=== PATIENT | female | born 1980 | race Caucasian/White ===

== ENCOUNTER 2021-05-03 22:06 | Inpatient (IN) | payer OTHER ==
[~2021-05-03] VITALS: Ht 170.2 cm; Wt 70.3 kg
--- NOTE | 2021-05-03 22:30 | NUR ---
PRESENTED TO THE ER FOR C/O ABD PAIN, NO N/V/D, NO FEVER OR CHILLS. PT WAS PLACED IN BED 10 ER, ON A MONITOR. VSS.
[2021-05-03 23:30] LABS: BASOPHILS # (AUTO) 0.1 K/uL (0.0-0.2); BASOPHILS % (AUTO) 0.7 % (0.0-2.0); EOSINOPHILS % (AUTO) 2.8 % (0.0-6.0); HEMATOCRIT 39 % (33-45); HEMOGLOBIN 13.4 g/dL (11.5-14.8); LYMPHOCYTES # (AUTO) 2.6 K/uL (0.8-4.8); LYMPHOCYTES % (AUTO) 13.2 % (20.0-44.0); MEAN CORPUSCULAR HGB CONC 34 g/dl (31.0-36.0); MEAN CORPUSCULAR VOLUME 114 fL (82-100); MONOCYTES # (AUTO) 1.5 K/uL (0.1-1.30); MONOCYTES % (AUTO) 7.8 % (2.0-12.0); NEUTROPHILS % (AUTO) 75.5 % (43.0-81.0); PLATELET COUNT (AUTO) 236 K/uL (150-450); RED BLOOD CELL COUNT(AUTO) 3.46 MIL/uL (4.0-5.2); WHITE BLOOD COUNT (AUTO) 19.8 K/uL (4.3-11.0)
[2021-05-03 23:31] LABS: BILIRUBIN,URINE NEGATIVE (NEGATIVE); COLOR,URINE YELLOW (YELLOW); LEUKOCYTE ESTERASE ,URINE LARGE (NEGATIVE); NITRITE, URINE NEGATIVE (NEGATIVE); PH,URINE 6.5 (5.0-8.0); PROTEIN,URINE NEGATIVE (NEGATIVE); UGLUCOSE NEGATIVE (NEGATIVE); UROBILINOGEN,URINE 0.2 EU/dL (0.2)
[2021-05-03 23:37] LABS: BACTERIA,URINE Few /HPF (None Seen); RBC,URINE 0-2 /HPF (0-2); SQUAMOUS EPITHELIAL CELL,UR Few /HPF (None Seen)
[2021-05-03 23:38] LABS: MUCUS,URINE Few /LPF (None Seen)
[2021-05-03 23:41] LABS: CALCIUM, SERUM 8.5 mg/dL (8.5-10.1); CREATININE 0.6 mg/dL (0.6-1.3); POTASSIUM 3.9 mmol/L (3.5-5.1)
[2021-05-03 23:47] LABS: ALBUMIN 2.7 g/dL (3.4-5.0); BILIRUBIN,DIRECT 0.8 mg/dL (0.0-0.2)
[2021-05-03 23:54] LABS: NEUTROPHILS % (MANUAL) 75 (42-76)
[2021-05-03 23:55] LABS: BASOPHILS % (MANUAL) 0 % (0.0-2.0); EOSINOPHILS % (MANUAL) 4 % (0-4); LYMPHOCYTES % (MANUAL) 8 % (16-48); MONOCYTES % (MANUAL) 13 % (0-11.0)
[2021-05-04] MEDS ORDERED: ONDANSETRON HCL/PF - ER 4 MG/2 ML VIAL IV ONE
[2021-05-04] MEDS ORDERED: MORPHINE SULFATE INJ 2 MG/ML DISP.SYRIN IV ONE
[2021-05-04] MEDS ORDERED: ONDANSETRON HCL/PF 4 MG/2 ML VIAL ONE (00:16)
[2021-05-04] MEDS ORDERED: MORPHINE SULFATE INJ 4 MG/ML DISP.SYRIN ONE (00:16)
[2021-05-04] MEDS ORDERED: PIPERACILLIN /TAZOBACTAM 3.375 G VIAL IV ONE (00:54)
[2021-05-04] MEDS ORDERED: PIPERACILLIN /TAZOBACTAM 3.375 G in IV D5W 50 ML IV ONE (01:00)
[2021-05-04] MEDS ORDERED: MAGNESIUM HYDROXIDE 30 ML UDC PO PRN (02:30)
[2021-05-04] MEDS ORDERED: MORPHINE SULFATE INJ 2 MG/ML DISP.SYRIN IV PRN (02:30)
[2021-05-04] MEDS ORDERED: ONDANSETRON HCL/PF 4 MG/2 ML VIAL IVP PRN (02:30)
[2021-05-04] MEDS ORDERED: ACETAMINOPHEN 325 MG TABLET PO PRN (02:30)
[2021-05-04] MEDS ORDERED: ZOLPIDEM TARTRATE 5 MG TABLET PO PRN (02:30)
--- NOTE | 2021-05-04 02:35 | NUR ---
WAS SEEN BY HAZEL MILIAN DNP, HOSPITALIST
[2021-05-04] MEDS: IV NS 0.9% 1,000 ML IV PRN ×2 (02:40→08:18)
--- NOTE | 2021-05-04 02:43 | NUR ---
RESTING IN BED COMFORTABLY, BREATHING EVEN, NAD NOTED . VSS. ON ONGOING IVF THERAPY WITH STABLE VS. WILL CONT TO MONITOR
[2021-05-04 04:39] LABS: BASOPHILS # (AUTO) 0.1 K/uL (0.0-0.2); BASOPHILS % (AUTO) 0.4 % (0.0-2.0); EOSINOPHILS % (AUTO) 3.5 % (0.0-6.0); HEMATOCRIT 40 % (33-45); HEMOGLOBIN 13.6 g/dL (11.5-14.8); LYMPHOCYTES # (AUTO) 2.5 K/uL (0.8-4.8); LYMPHOCYTES % (AUTO) 12.9 % (20.0-44.0); MEAN CORPUSCULAR HGB CONC 34 g/dl (31.0-36.0); MEAN CORPUSCULAR VOLUME 115 fL (82-100); MONOCYTES # (AUTO) 1.6 K/uL (0.1-1.30); MONOCYTES % (AUTO) 8.1 % (2.0-12.0); NEUTROPHILS # (AUTO) 14.4 K/uL (1.8-8.9); NEUTROPHILS % (AUTO) 75.1 % (43.0-81.0); PLATELET COUNT (AUTO) 243 K/uL (150-450); WHITE BLOOD COUNT (AUTO) 19.2 K/uL (4.3-11.0)
[2021-05-04 04:50] LABS: CALCIUM, SERUM 8.5 mg/dL (8.5-10.1); CREATININE 0.6 mg/dL (0.6-1.3); MAGNESIUM 1.7 mg/dL (1.8-2.4); PHOSPHORUS 3.9 mg/dL (2.5-4.9); POTASSIUM 3.8 mmol/L (3.5-5.1)
--- NOTE | 2021-05-04 05:14 | NUR ---
DOSING IN BED , BREATHING EVENLY W/ NO ACUTE DISTRESS. W/ MILD ABD PAIN. ON ONGOING IVF W/ NO S/S OF INFILTRATION. NEEDS ATTENDED. CALL LIGHT WITHIN REACH. WILL CONT TO MONITOR
[2021-05-04 05:29] LABS: BASOPHILS % (MANUAL) 0 % (0.0-2.0); EOSINOPHILS % (MANUAL) 4 % (0-4); LYMPHOCYTES % (MANUAL) 8 % (16-48); MONOCYTES % (MANUAL) 5 % (0-11.0); NEUTROPHILS % (MANUAL) 83 (42-76)
--- NOTE | 2021-05-04 06:40 | NUR ---
Patient is resting comfortably in bed with eyes closed. Easily aroused. WILL CONT TO MONITOR
[2021-05-04] MEDS: PIPERACILLIN /TAZOBACTAM 3.375 G in IV D5W 100 ML IV SCH ×2 (08:18→17:40)
--- NOTE | 2021-05-04 08:21 | NUR ---
40 years old female alert, oriented x4 ambulatory with steady presents to er with abd pain, condition stable no nausea vomiting vital stable awaiting for admit bed. patient informs.
--- NOTE | 2021-05-04 08:32 | NUR ---
patient stable for transfer to unit room 116-1, report given to nurse Bridgerat all questions answered.
--- NOTE | 2021-05-04 09:20 | NUR ---
Patient was taken to RADIOLOGY FOR [facility] SCAN AT 915 AM IN STABLE CONDITION
[2021-05-04] MEDS: Magnesium 1GM/D5W 100ML PREMIX 100 ML IV SCH ×2 (11:00→12:39)
--- NOTE | 2021-05-04 11:00 | NUR ---
Received order from MD Holbrook to order regular diet after 1430 pm for the patient.
[2021-05-04 12:00] VITALS: BP 92/56
[2021-05-04] MEDS: CHLORDIAZEPOXIDE HCL 25 MG CAPSULE PO SCH ×2 (13:01→17:40)
--- NOTE | 2021-05-04 19:47 | NUR ---
RN OPENING NOTE Received pt in bed, alert and oriented x4. Patient is breathing even and unlabored on room air. no s/s of resp. distress or SOB noted. Right forearm iv infiltrated and erythema noted, discontinued. (L) AC 20G patent and intact running NS @ 75ml/hr. Patient in stable condition. Safety measures in place: Call light with in reach, bed locked in lowest position, side rails up x2. pt. is ambulatory with steady gait. No acute distress noted at this time.
--- NOTE | 2021-05-04 19:50 | NUR ---
RN CLOSING NOTES Patient is alert and oriented. Patient is breathing even and unlabored. Right forearm iv noted with redness. Iv site discontinued and new iv inserted 20 gauge to left ac. Patient in good stable condition. Call light with in reach. Endorsed to next shift for portillo.
[2021-05-04 20:00] VITALS: BP 117/73
[2021-05-05] MEDS: PIPERACILLIN /TAZOBACTAM 3.375 G in IV D5W 100 ML IV SCH ×3 (00:14→17:00)
[2021-05-05 04:00] VITALS: BP 117/81
--- NOTE | 2021-05-05 06:28 | NUR ---
RN CLOSING NOTE Pt in bed, alert and oriented x4. Patient is breathing even and unlabored on room air. no s/s of resp. distress or SOB noted. (L) AC 20G patent and intact running NS @ 75ml/hr. Patient in stable condition. All orders and needs met throughout shift.Safety measures in place: Call light with in reach, bed locked in lowest position, side rails up x2. pt. is ambulatory with steady gait. No acute distress noted at this time. Will endorse continuity of care to morning shift RN
[2021-05-05 06:48] LABS: BASOPHILS # (AUTO) 0.1 K/uL (0.0-0.2); BASOPHILS % (AUTO) 0.5 % (0.0-2.0); EOSINOPHILS % (AUTO) 4.7 % (0.0-6.0); HEMATOCRIT 37 % (33-45); HEMOGLOBIN 12.5 g/dL (11.5-14.8); LYMPHOCYTES # (AUTO) 2.3 K/uL (0.8-4.8); LYMPHOCYTES % (AUTO) 15.5 % (20.0-44.0); MEAN CORPUSCULAR HGB CONC 33 g/dl (31.0-36.0); MEAN CORPUSCULAR VOLUME 115 fL (82-100); MONOCYTES # (AUTO) 1.3 K/uL (0.1-1.30); MONOCYTES % (AUTO) 9.1 % (2.0-12.0); NEUTROPHILS # (AUTO) 10.4 K/uL (1.8-8.9); NEUTROPHILS % (AUTO) 70.2 % (43.0-81.0); PLATELET COUNT (AUTO) 205 K/uL (150-450); RED BLOOD CELL COUNT(AUTO) 3.25 MIL/uL (4.0-5.2); WHITE BLOOD COUNT (AUTO) 14.8 K/uL (4.3-11.0)
[2021-05-05 06:52] LABS: CALCIUM, SERUM 8.3 mg/dL (8.5-10.1); CREATININE 0.5 mg/dL (0.6-1.3); PHOSPHORUS 3.4 mg/dL (2.5-4.9); POTASSIUM 3.7 mmol/L (3.5-5.1)
--- NOTE | 2021-05-05 07:30 | NUR ---
PT RECEIVED RESTING COMFORTABLY IN BED WITH EYES CLOSED. NO S/S OR C/O PAIN OR DISTRESS NOTED. SIDE RAILS UP X2, CALL LIGHT LEFT WITHIN REACH. WILL CONTINUE PLAN OF CARE.
[2021-05-05] MEDS: CHLORDIAZEPOXIDE HCL 25 MG CAPSULE PO SCH ×3 (08:25→17:43)
[2021-05-05] MEDS: PANTOPRAZOLE 40 MG VIAL IV SCH ×2 (11:26→17:43)
[2021-05-05 12:00] VITALS: BP 117/81
--- NOTE | 2021-05-05 19:28 | NUR ---
CHANGE OF SHIFT REPORT PT RESTING COMFORTABLY IN BED. NO S/S OR C.O PAIN OR DISTRESS NOTED. SIDE RAILS UP X2, CALL LIGHT LEFT WITHIN REACH. PT KEPT CLEAN, DRY, AND COMFORTABLE. NO SIGNIFICANT CHANGES SINCE PREVIOUS SHIFT. REPORT GIVEN TO LIBBY DURANT.
--- NOTE | 2021-05-05 19:45 | NUR ---
RN NOTE PT RECEIVED IN BED. CURRENTLY ON ROOM AIR SHOWING NO S/S OF RESP DISTRESS/SOB. PT IS A&OX4. PT IS ABLE TO AMBULATE INDEPENDENTLY. CHEST RASH NOTED, PT STATES PSORIASIS. CURRENTLY ON REGULAR DIET. IV LINE ON LEFT HAND GAUGE 20 FLUSHED, PATENT, AND INTACT INFUSING NS AT 75ML/HR. ALL SAFETY MEASURES IMPLEMENTED. CALL LIGHT WITHIN REACH. BED ALARM ON. BED LOCKED AND IN LOWEST POSITION. WILL CONTINUE TO MONITOR AND ASSESS THROUGHOUT THE SHIFT.
[2021-05-05 20:00] VITALS: BP 115/78
[2021-05-05 20:12] VITALS: BP 115/78
[2021-05-05] MEDS: IV NS 0.9% 1,000 ML IV PRN (20:14)
--- NOTE | 2021-05-05 21:50 | NUR ---
RN NOTE PT IV LINE WAS INFILTRATED. REMOVED LEFT AC LINE AND RE-INSERTED IV LINE IN LEFT HAND GAUGE 20.
[2021-05-05 23:55] VITALS: BP 118/75
[2021-05-06] MEDS: PIPERACILLIN /TAZOBACTAM 3.375 G in IV D5W 100 ML IV SCH ×2 (00:45→08:21)
[2021-05-06 04:00] VITALS: BP 110/71
[2021-05-06 04:25] VITALS: BP 110/71
--- NOTE | 2021-05-06 06:37 | NUR ---
RN NOTE NO CHANGES IN PT CONDITION DURING SHIFT. PT IS ON ROOM AIR WITH NO S/S OF RESP DISTRESS/SOB. A&OX4. PT IS AMBULATORY AND HAS IV LINE ON LEFT HAND GAUGE 20 INFUSING NS@ 75ML/HR. IV LINE FLUSHED, PATENT, AND INTACT W/ NO SIGNS OF INFILTRATION. PT KEPT CLEAN AND COMFORTABLE. ALL SAFETY MEASURES IMPLEMENTED. BED ALARM ON. BED LOCKED AND IN LOWEST POSITION. CALL LIGHT WITHIN REACH. WILL ENDORSE TO MORNING SHIFT RN FOR CLARIBEL.
--- NOTE | 2021-05-06 07:49 | NUR ---
RN OPENING NOTES; RECEIVED PT IN SITTING PO. A/OX4. PT 02 SAT 100% IN ROOM AIR. NO C/O SOB OR DISTRESS. PT IS AMBULATORY AND VOIDS BY USING RESTROOM INDEPENDENTLY. IV LINE INTACT AND PATENT ON LEFT HAND GAUGE 20 INFUSING NS@ 75ML/HR. W/ NO SIGNS OF INFILTRATION. PALL SAFETY MEASURES IMPLEMENTED. BED ALARM ON. BED LOCKED AND IN LOWEST POSITION. CALL LIGHT WITHIN REACH. WILL CONTINUE TO MONITOR.
[2021-05-06] MEDS: CHLORDIAZEPOXIDE HCL 25 MG CAPSULE PO SCH (08:20)
[2021-05-06] MEDS: PANTOPRAZOLE 40 MG VIAL IV SCH (08:21)
[2021-05-06] MEDS ORDERED: AMOX-430 PO (10:15)
[2021-05-06 11:02] LABS: BASOPHILS # (AUTO) 0.1 K/uL (0.0-0.2); BASOPHILS % (AUTO) 0.6 % (0.0-2.0); EOSINOPHILS % (AUTO) 4.9 % (0.0-6.0); HEMATOCRIT 39 % (33-45); HEMOGLOBIN 13.2 g/dL (11.5-14.8); LYMPHOCYTES # (AUTO) 2.6 K/uL (0.8-4.8); LYMPHOCYTES % (AUTO) 19.5 % (20.0-44.0); MEAN CORPUSCULAR HGB CONC 34 g/dl (31.0-36.0); MEAN CORPUSCULAR VOLUME 115 fL (82-100); MONOCYTES # (AUTO) 1.2 K/uL (0.1-1.30); MONOCYTES % (AUTO) 9.3 % (2.0-12.0); NEUTROPHILS # (AUTO) 8.6 K/uL (1.8-8.9); NEUTROPHILS % (AUTO) 65.7 % (43.0-81.0); PLATELET COUNT (AUTO) 220 K/uL (150-450); WHITE BLOOD COUNT (AUTO) 13.2 K/uL (4.3-11.0)
[2021-05-06] MEDS ORDERED: GADOTERATE MEGLUMINE 10 MMOL/20 ML VIAL IV ONE (11:22)
[2021-05-06 11:24] LABS: ALBUMIN 2.4 g/dL (3.4-5.0); BILIRUBIN,TOTAL 1.1 mg/dL (0.2-1.0); CALCIUM, SERUM 8.2 mg/dL (8.5-10.1); CREATININE 0.7 mg/dL (0.6-1.3); POTASSIUM 3.9 mmol/L (3.5-5.1); TOTAL PROTEIN, SERUM 7.4 g/dL (6.4-8.2)
--- NOTE | 2021-05-06 11:52 | NUR ---
PT A/OX4, AMBULATORY, NO C/O PAIN OR DISTRESS. PT DISCHARGED TO HOME IN STABLE CONDITION. PT WAS ESCORTED BY NICO LEE TO THE LOBBY WHERE SHE WAS PICKED UP BY A FRIEND. PT GIVEN DISCHARGE TEACHINGS AND STATES UNDERSTANDING.
== END 2021-05-06 11:23 | disposition home or self-care (01) | DRG 282 ==
LOC: ER 22:10 → TRANSITION 05-04 02:27 → MEDSG1 05-04 08:14
PROVIDERS: ADMIT Internal Medicine; ATTEND Internal Medicine
DX: K85.90 Acute pancreatitis without necrosis or infection, unspecified (principal); R18.8 Other ascites; K76.0 Fatty (change of) liver, not elsewhere classified; F10.10 Alcohol abuse, uncomplicated; K43.9 Ventral hernia without obstruction or gangrene; K64.9 Unspecified hemorrhoids; Z20.822 Contact with and (suspected) exposure to COVID-19; K27.9 Peptic ulcer, site unspecified, unspecified as acute or chronic, without hemorrhage or perforation; K52.9 Noninfective gastroenteritis and colitis, unspecified; R74.01 Elevation of levels of liver transaminase levels; Z72.0 Tobacco use; Y90.9 Presence of alcohol in blood, level not specified; K82.8 Other specified diseases of gallbladder; K86.2 Cyst of pancreas
CPT/HCPCS: 36415; 74183-TC; 76705-TC; 78226; 80048-TC; 80053-TC; 80061-TC; 80076-TC; 81001; 83605-TC; 83690-TC; 83735-TC; 84100-TC; 84703-TC; 85025-TC; 86140-TC; 87081-TC; 87086-TC; A9537; A9575; C9113; C9803; G0378; J2270; J2405; J2543; J3475; J7030; J7050; J7060

== ENCOUNTER 2021-05-27 21:11 | Emergency (ER) | payer OTHER ==
[~2021-05-27] VITALS: Ht 170.2 cm; Wt 70.3 kg
[~2021-05-27 21:11] MED LIST: AMOX-430 PO
[2021-05-27 22:09] LABS: BASOPHILS # (AUTO) 0.1 K/uL (0.0-0.2); BASOPHILS % (AUTO) 0.8 % (0.0-2.0); EOSINOPHILS % (AUTO) 1.3 % (0.0-6.0); HEMATOCRIT 36 % (33-45); HEMOGLOBIN 12.3 g/dL (11.5-14.8); LYMPHOCYTES # (AUTO) 2.5 K/uL (0.8-4.8); LYMPHOCYTES % (AUTO) 13.1 % (20.0-44.0); MEAN CORPUSCULAR HGB CONC 34 g/dl (31.0-36.0); MEAN CORPUSCULAR VOLUME 112 fL (82-100); MONOCYTES # (AUTO) 1.5 K/uL (0.1-1.30); NEUTROPHILS # (AUTO) 14.5 K/uL (1.8-8.9); NEUTROPHILS % (AUTO) 76.8 % (43.0-81.0); PLATELET COUNT (AUTO) 179 K/uL (150-450); RED BLOOD CELL COUNT(AUTO) 3.19 MIL/uL (4.0-5.2); WHITE BLOOD COUNT (AUTO) 18.9 K/uL (4.3-11.0)
[2021-05-27 22:25] LABS: CALCIUM, SERUM 8.4 mg/dL (8.5-10.1); CREATININE 0.7 mg/dL (0.6-1.3); POTASSIUM 3.1 mmol/L (3.5-5.1)
[2021-05-27] MEDS ORDERED: IV NS 0.9% 1,000 ML BAG IV ONE (22:30)
[2021-05-27] MEDS ORDERED: ONDANSETRON HCL/PF 4 MG/2 ML VIAL IVP ONE (22:30)
[2021-05-27] MEDS ORDERED: POTASSIUM CHLORIDE 20 MEQ TAB.PRT.SR PO ONE ×2 (22:30→22:50)
[2021-05-27] MEDS ORDERED: MORPHINE SULFATE INJ 2 MG/ML DISP.SYRIN IV ONE (22:30)
[2021-05-27 22:31] LABS: ALBUMIN 2.5 g/dL (3.4-5.0); BILIRUBIN,DIRECT 1.5 mg/dL (0.0-0.2); BILIRUBIN,TOTAL 1.9 mg/dL (0.2-1.0); TOTAL PROTEIN, SERUM 8.3 g/dL (6.4-8.2)
[2021-05-27] MEDS ORDERED: ONDANSETRON HCL/PF 4 MG/2 ML VIAL ONE (22:49)
[2021-05-27] MEDS ORDERED: MORPHINE SULFATE INJ 4 MG/ML DISP.SYRIN ONE (22:50)
[2021-05-27] MEDS ORDERED: POTASSIUM CHLORIDE 20 MEQ POWDER PACKET ONE (22:57)
--- NOTE | 2021-05-27 23:17 | NUR ---
PATIENT CAME TO ER BED 4 C/O ABDOMINAL PAIN FOR 1-2 x WEEK W/ NAUSEA AND VOMITING. ALSO C/O LAST 2x DAYS FEELING TINGLING AND NUMBNESS SENSATION THROUGHOUT HER BODY. PATIENT IS ALERT AND ORIENTED x4. AMBULATORY WITH A STEADY GAIT. BREATHING EVENLY AND UNLABORED ON ROOM AIR CONNECTED TO THE MONITOR.
--- NOTE | 2021-05-27 23:18 | NUR ---
URINE COLLECTED AND SENT TO THE LAB.
[2021-05-27 23:27] LABS: BILIRUBIN,URINE MODERATE (NEGATIVE); COLOR,URINE DARK YELLOW (YELLOW); LEUKOCYTE ESTERASE ,URINE Negative (NEGATIVE); NITRITE, URINE Positive (NEGATIVE); PROTEIN,URINE 30 mg/dl (NEGATIVE); UGLUCOSE Negative (NEGATIVE)
--- NOTE | 2021-05-27 23:29 | NUR ---
US at the bedside
[2021-05-27 23:57] LABS: BACTERIA,URINE Many /HPF (None Seen); SQUAMOUS EPITHELIAL CELL,UR Few /HPF (None Seen)
[2021-05-28 00:03] LABS: BAND % (MANUAL) 2 % (0.0-5.0); BASOPHILS % (MANUAL) 0 % (0.0-2.0); EOSINOPHILS % (MANUAL) 0 % (0-4); LYMPHOCYTES % (MANUAL) 6 % (16-48); MONOCYTES % (MANUAL) 8 % (0-11.0); NEUTROPHILS % (MANUAL) 84 (42-76)
[2021-05-28] MEDS ORDERED: CEPHALEXIN MONOHYDRATE 500 MG CAPSULE PO ONE ×2 (00:12→00:30)
[2021-05-28] MEDS ORDERED: ONDA4TAB5 PO (00:30)
[2021-05-28] MEDS ORDERED: CEPH500T PO (00:30)
[2021-05-28] MEDS ORDERED: IBUP-1955 PO (00:30)
[2021-05-28] MEDS ORDERED: IV NS 0.9% 1,000 ML BAG IV ONE (00:30)
[2021-05-28] MEDS ORDERED: CHLO25CA22 PO (00:30)
[2021-05-28 00:49] VITALS: BP 115/71
--- NOTE | 2021-05-28 00:49 | NUR ---
Patient discharged to home in stable condition. Written and verbal after care instructions given. Patient verbalizes understanding of instruction.
--- NOTE | 2021-05-28 00:49 | NUR ---
IV removed. Catheter intact and site benign. Pressure and 4x4 applied to site. No bleeding noted.
== END 2021-05-28 00:50 | disposition home or self-care (01) ==
LOC: ER 21:19
DX: N39.0 Urinary tract infection, site not specified (principal); R10.13 Epigastric pain; F10.20 Alcohol dependence, uncomplicated; F17.200 Nicotine dependence, unspecified, uncomplicated; Y90.9 Presence of alcohol in blood, level not specified; Z60.2 Problems related to living alone; Z79.899 Other long term (current) drug therapy
CPT/HCPCS: 36415; 76705; 80048; 80076; 81001; 83690; 83735; 84703; 85007; 85025; 87086; 96361 ×2; 96374; 96375; 99284; J2270; J2405; J7030 ×2

== ENCOUNTER 2022-02-03 10:01 | Emergency (ER) | payer OTHER ==
[~2022-02-03] VITALS: Ht 170.2 cm; Wt 62.6 kg
[~2022-02-03 10:01] MED LIST changes: +CEPH500T PO; +CHLO25CA22 PO; +IBUP-1955 PO; +ONDA4TAB5 PO
[2022-02-03 10:07] VITALS: BP 113/65
--- NOTE | 2022-02-03 10:10 | NUR ---
C/O r ankle pain, swollen, s/p rolled out while walking 10/10 ps. Came in by wheelchair aaox4, in pain.
--- NOTE | 2022-02-03 10:10 | NUR ---
AT BED SIDE
--- NOTE | 2022-02-03 10:15 | NUR ---
X-RAY TECH. AT BED SIDE
[2022-02-03] MEDS ORDERED: IBUPROFEN 600 MG TABLET PO ONE (11:00)
[2022-02-03] MEDS ORDERED: IBUPROFEN 600 MG TABLET ONE (11:26)
[2022-02-03] MEDS ORDERED: IBUP-1953 PO (11:55)
--- NOTE | 2022-02-03 12:10 | NUR ---
Patient discharged to home in stable condition. Written and verbal after care instructions given. Patient verbalizes understanding of instruction.
== END 2022-02-03 12:10 | disposition home or self-care (01) ==
LOC: ER 10:06
DX: S82.64XA Nondisplaced fracture of lateral malleolus of right fibula, initial encounter for closed fracture (principal); S92.515A Nondisplaced fracture of proximal phalanx of left lesser toe(s), initial encounter for closed fracture; I10 Essential (primary) hypertension; F17.200 Nicotine dependence, unspecified, uncomplicated; Z60.2 Problems related to living alone; Z79.899 Other long term (current) drug therapy; X50.1XXA Overexertion from prolonged static or awkward postures, initial encounter; Y93.89 Activity, other specified; Y92.89 Other specified places as the place of occurrence of the external cause; Y99.8 Other external cause status
CPT/HCPCS: 73610-TC; 73660-TC

== ENCOUNTER 2022-05-25 11:11 | Inpatient (IN) | payer OTHER ==
[~2022-05-25] VITALS: Ht 170.2 cm; Wt 71.2 kg
[~2022-05-25 11:11] MED LIST changes: +IBUP-1953 PO
--- NOTE | 2022-05-25 11:44 | NUR ---
DR FORMAN AT BEDSIDE FOR EVAL
--- NOTE | 2022-05-25 11:50 | NUR ---
ASSISTED DR FORMAN DURING I&D OF PATIENT L BUTTOCK AREA ABSCESS
[2022-05-25] MEDS ORDERED: LIDOCAINE 1%-EPI 1:100,000 20 ML VIAL ONE (11:59)
--- NOTE | 2022-05-25 12:20 | NUR ---
WOUND CULTURE COLLECTED AND SENT TO LAB
[2022-05-25] MEDS ORDERED: FURO20TA4 PO (12:28)
[2022-05-25] MEDS ORDERED: GABA800T11 PO (12:28)
[2022-05-25] MEDS ORDERED: SPIR25TA6 PO (12:28)
[2022-05-25] MEDS ORDERED: PROP10TA68 PO (12:28)
[2022-05-25] MEDS ORDERED: DULO60CA64 PO (12:28)
[2022-05-25] MEDS ORDERED: PANT40TA49 PO (12:28)
--- NOTE | 2022-05-25 12:29 | NUR ---
COVID AND MRSA SWAB COLLECTED AND SENT TO LAB
[2022-05-25] MEDS ORDERED: CT SWABBABLE VALVE TRANS SET 1 EA INFUS.SET MC ONE (12:39)
[2022-05-25] MEDS ORDERED: IOHEXOL-300 100 ML VIAL IV ONE (12:39)
[2022-05-25] MEDS ORDERED: IV NS 0.9% 250 ML IV ONE (12:39)
[2022-05-25 12:48] LABS: BASOPHILS # (AUTO) 0.1 K/uL (0.0-0.2); BASOPHILS % (AUTO) 0.3 % (0.0-2.0); EOSINOPHILS % (AUTO) 0.7 % (0.0-6.0); HEMATOCRIT 34 % (33-45); HEMOGLOBIN 11.5 g/dL (11.5-14.8); LYMPHOCYTES # (AUTO) 3.1 K/uL (0.8-4.8); LYMPHOCYTES % (AUTO) 16.9 % (20.0-44.0); MEAN CORPUSCULAR HGB CONC 34 g/dl (31.0-36.0); MEAN CORPUSCULAR VOLUME 94 fL (82-100); MONOCYTES # (AUTO) 3.1 K/uL (0.1-1.30); MONOCYTES % (AUTO) 16.9 % (2.0-12.0); NEUTROPHILS # (AUTO) 12.1 K/uL (1.8-8.9); NEUTROPHILS % (AUTO) 65.2 % (43.0-81.0); PLATELET COUNT (AUTO) 168 K/uL (150-450); RED BLOOD CELL COUNT(AUTO) 3.65 MIL/uL (4.0-5.2); WHITE BLOOD COUNT (AUTO) 18.6 K/uL (4.3-11.0)
--- NOTE | 2022-05-25 12:49 | NUR ---
PT TAKEN TO [facility]IOLOGY [facility]IA [facility]
[2022-05-25 13:22] LABS: ALBUMIN 2.7 g/dL (3.4-5.0); CALCIUM, SERUM 8.6 mg/dL (8.5-10.1); CREATININE 0.8 mg/dL (0.6-1.3); TOTAL PROTEIN, SERUM 8.4 g/dL (6.4-8.2)
[2022-05-25 13:25] LABS: POTASSIUM 2.5 mmol/L (3.5-5.1)
[2022-05-25 13:28] LABS: LYMPHOCYTES % (MANUAL) 16 % (16-48); MONOCYTES % (MANUAL) 7 % (0-11.0); NEUTROPHILS % (MANUAL) 77 (42-76)
[2022-05-25] MEDS ORDERED: IV NS 0.9% 1,000 ML BAG IV ONE (13:30)
[2022-05-25] MEDS ORDERED: POTASSIUM CL. PREMIX PERIPHER. 100 ML ONE (14:57)
[2022-05-25] MEDS ORDERED: POTASSIUM CHLORIDE 20 MEQ TAB.PRT.SR PO ONE ×2 (14:57→15:00)
[2022-05-25] MEDS: POTASSIUM CL. PREMIX PERIPHER. 50 ML IV SCH ×2 (15:06→15:57)
--- NOTE | 2022-05-25 17:08 | NUR ---
Patient will go to 321-1
--- NOTE | 2022-05-25 17:13 | NUR ---
REPORT GIVEN TO MACI DURANT FOR CLARIBEL
[2022-05-25] MEDS ORDERED: MORPHINE SULFATE INJ 2 MG/ML DISP.SYRIN ONE (17:59)
[2022-05-25] MEDS ORDERED: HYDROCODONE/APAP 5/325MG TABLET PO PRN ×2 (18:00→19:00)
[2022-05-25] MEDS ORDERED: ACETAMINOPHEN 325 MG TABLET PO PRN ×2 (18:00→19:00)
[2022-05-25] MEDS ORDERED: Z GUARD REMEDY 4 OZ OINT TP PRN ×2 (18:00→18:15)
[2022-05-25] MEDS ORDERED: ONDANSETRON HCL/PF 4 MG/2 ML VIAL IVP PRN ×2 (18:00→19:00)
[2022-05-25] MEDS ORDERED: MAG HYDROX/AL HYDROX/SIMETH 30 ML UDC PO PRN ×2 (18:00→19:00)
[2022-05-25] MEDS: MORPHINE SULFATE INJ 2 MG/ML DISP.SYRIN IV PRN (18:00)
[2022-05-25] MEDS ORDERED: PIPERACILLIN /TAZOBACTAM 3.375 G in IV D5W 50 ML IV SCH (18:00)
[2022-05-25] MEDS ORDERED: MAGNESIUM HYDROXIDE 30 ML UDC PO PRN ×2 (18:00→19:00)
[2022-05-25] MEDS ORDERED: ZOLPIDEM TARTRATE 5 MG TABLET PO PRN ×2 (18:00→22:00)
--- NOTE | 2022-05-25 18:58 | NUR ---
PT TRANSFERRED TO [facility]. WARM HANDOFF GIVEN TO RN ASSIGNED.
[2022-05-25] MEDS ORDERED: VANCOMYCIN 1.25 GM in IV D5W 250 ML IV ONE ×2 (19:00→19:15)
--- NOTE | 2022-05-25 19:00 | NUR ---
RN RECEIVING NOTE PATIENT BROUGHT UP FROM ER. PATIENT A/OX4. STABLE. PATIENT WAS ABLE TO AMBULATE TO HER BED. NO S/S OF DISTRESS, BREATHING WITHOUT DIFFICULTY ON ROOM AIR. RAC #20 SL INTACT AND PATENT. SAFETY MEASURES IN PLACE: BED AT LOWEST LEVEL AND LOCKED, RAILS UP X2, CALL TANNER GIVEN TO PATIENT AND INSTRUCTED ON ITS USE. PATIENT'S BELONGINGS ACCOUNTED FOR, LOGGED INTO SHEET, AND PLACED IN CHART. PATIENT WAS ORIENTED TO THE UNIT. WILL CONTINUE TO MONITOR PATIENT.
[2022-05-26] MEDS: PIPERACILLIN /TAZOBACTAM 3.375 G in IV D5W 50 ML IV SCH ×4 (00:28→17:55)
[2022-05-26 01:48] VITALS: BP 98/60
[2022-05-26] MEDS: VANCOMYCIN 1.25 GM in IV D5W 250 ML IV SCH ×2 (06:14→19:46)
--- NOTE | 2022-05-26 06:48 | NUR ---
RN CLOSING NOTE PATIENT ASLEEP IN BED. A/OX4. NO S/S OF DISTRESS, BREATHING WITHOUT DIFFICULTY ON ROOM AIR. RAC #20 SL INTACT AND PATENT W/ VANCO 125ML/HR. SAFETY MEASURES IN PLACE: BED LOCKED AND AT LOWEST POSITION, RAILS UP X2, CALL TANNER WITHIN REACH. WILL ENDORSE TO NEXT SHIFT FOR CLARIBEL
[2022-05-26] MEDS ORDERED: VANCOMYCIN 1.25 GM in IV D5W 250 ML IV SCH (07:00)
[2022-05-26] MEDS ORDERED: PANTOPRAZOLE 40 MG TABLET.DR PO SCH (07:30)
[2022-05-26] MEDS: PANTOPRAZOLE 40 MG TABLET.DR PO SCH (07:32)
--- NOTE | 2022-05-26 07:40 | NUR ---
MS RN OPENING NOTE RECEIVED PATIEN AWAKE IN BED, A/OX4. NO S/S OF DISTRESS, ABLE TO BREATHE WELL ON ROOM AIR. AMBULATORY WITH RAC #20 SL INTACT, PATENT, FLUSHES WELL. COMPLAINS OF 8/10 PAIN IN THE AFFECTED AREA AND HEADACHE. GIVEN PRN PAIN MEDS. WILL CONTINUE TO MONITOR. SAFETY MEASURES IN PLACE: BED LOCKED AND AT LOWEST POSITION, RAILS UP X2, CALL TANNER WITHIN REACH. WILL CONTINUE TO MONITOR WITHIN MY SHIFT.
[2022-05-26] MEDS: MORPHINE SULFATE INJ 2 MG/ML DISP.SYRIN IV PRN ×2 (07:41→17:39)
[2022-05-26 08:00] VITALS: BP 117/81
[2022-05-26] MEDS: GABAPENTIN 400 MG CAPSULE PO SCH ×3 (08:23→16:47)
[2022-05-26] MEDS: DULOXETINE HCL 30 MG CAPSULE.DR PO SCH (08:25)
[2022-05-26] MEDS: FUROSEMIDE 20 MG TABLET PO SCH ×2 (08:25→16:49)
[2022-05-26] MEDS: PROPRANOLOL HCL 10 MG TABLET PO SCH ×2 (08:28→16:48)
[2022-05-26] MEDS ORDERED: GABAPENTIN 400 MG CAPSULE PO SCH (09:00)
[2022-05-26] MEDS ORDERED: PROPRANOLOL HCL 10 MG TABLET PO SCH (09:00)
[2022-05-26] MEDS ORDERED: FUROSEMIDE 20 MG TABLET PO SCH (09:00)
--- NOTE | 2022-05-26 09:43 | NUR ---
WOUND CARE CONSULT: PT SEEN FOR LEFT BUTTOCK WOUND, STATUS POST INCISION AND DRAINAGE IN E.R. RECOMMEND SURGICAL CONSULT. DR TY CEJA NOTIFIED. RECOMMENDATIONS MADE FOR WOUND CARE AND SKIN PROTECTION. DISCUSSED WITH NURSING STAFF.
[2022-05-26 12:02] LABS: CALCIUM, SERUM 8.7 mg/dL (8.5-10.1); CREATININE 0.7 mg/dL (0.6-1.3); POTASSIUM 2.9 mmol/L (3.5-5.1)
--- NOTE | 2022-05-26 12:20 | NUR ---
BHARGAV NOTES REMOVED CPM FOR THE L KNEE. PATIENT NOT COMPLAINING OF ANY PAIN. Addendum: 05/26/22 at 1221 by SAURAV WAGNER RN WRONG PATIENT
[2022-05-26] MEDS ORDERED: SUMATRIPTAN SUCCINATE 25 MG TABLET PO ONE (13:00)
--- NOTE | 2022-05-26 14:00 | NUR ---
MS RN NOTES SECURED CONSENTS FOR CT SCAN WITH CONTRAST FOR BOTH ABDOMEN/PELVIS AND CHEST AREA. PATIENT NPO SINCE 1230.
[2022-05-26 16:00] VITALS: BP 103/70
--- NOTE | 2022-05-26 17:30 | NUR ---
MS RN NOTES WOUND CARE PROVIDED USING NS, PACKED WOUNDS L BUTTOCKS WITH IODOFORM, COVERED WITH 7X7 BORDERED GAUZE DRESSING.
[2022-05-26] MEDS ORDERED: CT SWABBABLE VALVE TRANS SET 1 EA INFUS.SET MC ONE (18:29)
[2022-05-26] MEDS ORDERED: IOHEXOL-350 100 ML VIAL IV ONE (18:29)
[2022-05-26] MEDS ORDERED: IV NS 0.9% 250 ML IV ONE (18:29)
[2022-05-26] MEDS ORDERED: IOHEXOL 240MG/ML 50 ML IV ONE (18:29)
--- NOTE | 2022-05-26 18:50 | NUR ---
MS RN OPENING NOTE PATIENT AWAKE IN BED, A/OX4. NO S/S OF DISTRESS, ABLE TO BREATHE WELL ON ROOM AIR. AMBULATORY WITH R MIDLINE #20 SL INTACT WITH DRAINING ZOSYN IV AT 100 ML PER HOUR RUNNING FOR 30 MINS. PATIENT HAS BEEN ON NPO EXCEPT FOR MEDS FOR CT WITH CONTRAST. DUE PAIN MEDS GIVEN. W SAFETY MEASURES IN PLACE: BED LOCKED AND AT LOWEST POSITION, RAILS UP X2, CALL TANNER WITHIN REACH. ENDORSED TO THE NIGHT NURSE. Addendum: 05/26/22 at 2009 by SAURAV WAGNER RN MS RN CLOSING NOTE
[2022-05-26 20:00] VITALS: BP 115/70
--- NOTE | 2022-05-26 20:49 | NUR ---
RN OPENING NOTE PATIENT AWAKE IN BED. A/OX4. NO S/S OF DISTRESS, BREATHING WITHOUT DIFFICULTY ON ROOM AIR. RISHI MIDLINE #18 SL INTACT AND PATENT. SAFETY MEASURES IN PLACE: BED LOCKED AND AT LOWEST POSITION, RAILS UP X2, CALL TANNER WITHIN REACH. WILL CONTINUE TO MONITOR PATIENT.
[2022-05-27] MEDS: PIPERACILLIN /TAZOBACTAM 3.375 G in IV D5W 50 ML IV SCH ×3 (00:33→12:00)
[2022-05-27 06:46] LABS: BASOPHILS # (AUTO) 0.1 K/uL (0.0-0.2); BASOPHILS % (AUTO) 1.2 % (0.0-2.0); EOSINOPHILS % (AUTO) 3.4 % (0.0-6.0); HEMATOCRIT 34 % (33-45); HEMOGLOBIN 11.4 g/dL (11.5-14.8); LYMPHOCYTES # (AUTO) 2.1 K/uL (0.8-4.8); LYMPHOCYTES % (AUTO) 22.4 % (20.0-44.0); MEAN CORPUSCULAR HGB CONC 33 g/dl (31.0-36.0); MEAN CORPUSCULAR VOLUME 96 fL (82-100); MONOCYTES # (AUTO) 1.3 K/uL (0.1-1.30); MONOCYTES % (AUTO) 13.2 % (2.0-12.0); NEUTROPHILS # (AUTO) 5.7 K/uL (1.8-8.9); NEUTROPHILS % (AUTO) 59.8 % (43.0-81.0); PLATELET COUNT (AUTO) 174 K/uL (150-450); RED BLOOD CELL COUNT(AUTO) 3.58 MIL/uL (4.0-5.2); WHITE BLOOD COUNT (AUTO) 9.5 K/uL (4.3-11.0)
[2022-05-27] MEDS: VANCOMYCIN 1.25 GM in IV D5W 250 ML IV SCH (06:50)
--- NOTE | 2022-05-27 07:04 | NUR ---
RN CLOSING NOTE PATIENT ASLEEP IN BED. A/OX4. NO S/S OF DISTRESS, BREATHING WITHOUT DIFFICULTY ON ROOM AIR. RISHI MIDLINE #18 SL INTACT AND PATENT. TELE READS AFIB 80 CONTROLLED. SAFETY MEASURES STILL IN PLACE: BED LOCKED AND AT LOWEST POSITION, RAILS UP X2, CALL TANNER WITHIN REACH. WILL ENDORSE TO NEXT SHIFT FOR CLARIBEL.
[2022-05-27 07:11] LABS: ALBUMIN 2.4 g/dL (3.4-5.0); BILIRUBIN,DIRECT 0.9 mg/dL (0.0-0.2); BILIRUBIN,TOTAL 1.5 mg/dL (0.2-1.0); CALCIUM, SERUM 8.4 mg/dL (8.5-10.1); CREATININE 0.9 mg/dL (0.6-1.3); MAGNESIUM 1.8 mg/dL (1.8-2.4); PHOSPHORUS 4.3 mg/dL (2.5-4.9); POTASSIUM 3.1 mmol/L (3.5-5.1); TOTAL PROTEIN, SERUM 7.6 g/dL (6.4-8.2)
[2022-05-27] MEDS: PANTOPRAZOLE 40 MG TABLET.DR PO SCH (07:30)
--- NOTE | 2022-05-27 07:40 | NUR ---
RN OPENING NOTE PATIENT AWAKE IN BED. A/OX4. NO S/S OF DISTRESS, ON ROOM AIR TOLERATING WELL, DENIES PAIN AT THE MOMENT. RISHI MIDLINE #18 SL INTACT AND PATENT, FLUSHING WELL. PATIENT IS AMBULATORY AND HAS BRP. SAFETY MEASURES STILL IN PLACE: BED LOCKED AND AT LOWEST POSITION, RAILS UP X2, CALL TANNER WITHIN REACH. WILL CONTINUE TO MONITOR DURING MY SHIFT.
[2022-05-27] MEDS: GABAPENTIN 400 MG CAPSULE PO SCH ×2 (08:06→12:20)
[2022-05-27] MEDS: DULOXETINE HCL 30 MG CAPSULE.DR PO SCH (08:06)
[2022-05-27 08:07] LABS: AFP, TUMOR MARKER 3.9 ng/mL (0.0-6.4)
[2022-05-27] MEDS: FUROSEMIDE 20 MG TABLET PO SCH (08:07)
[2022-05-27] MEDS: PROPRANOLOL HCL 10 MG TABLET PO SCH (08:07)
[2022-05-27 08:14] VITALS: BP 102/68
[2022-05-27 08:32] VITALS: BP 160/110
[2022-05-27] MEDS ORDERED: POTASSIUM CHLORIDE 20 MEQ TAB.PRT.SR PO SCH (10:00)
--- NOTE | 2022-05-27 12:02 | NUR ---
RN NOTES PATIENT REFUSED HER 1200 ATB. SHE SAID IT MAY AFFECT HER LIVER. EDUCATED OF THE INDICATION, PATIENT STILL REFUSED.
[2022-05-27] MEDS: MORPHINE SULFATE INJ 2 MG/ML DISP.SYRIN IV PRN (12:19)
--- NOTE | 2022-05-27 12:43 | NUR ---
RN NOTES WOUND CARE PROVIDED: REMOVED IODOFORM PACKING, CLEANSED WITH NS, PAT DRY, PACK WITH IODOFORM PACKING GENTLY, COVERED WITH BORDERED DRESSING. RETURNED DEMO DONE BY PATIENT SUCCESSFULLY AND CONFIRMED THAT SHE IS COMFORTABLE DURING IT HERSELF DAILY UNTIL NEXT WOUND CARE APPOINTMENT. 3-4 DAYS WORTH OF WOUND SUPPLIES PROVIDED. PATIENT VERBALIZED UNDERSTANDING.
--- NOTE | 2022-05-27 13:55 | NUR ---
AMA NOTES PT IS AOX4, VERBALIZED THAT SHE WANTS TO LEAVE THE HOSPITAL AMA SO SHE CAN SEE HER DAUGHTER, REFUSED THE 1200 ATB. ALLOWED ME TO CLEAN HER L BUTTOCK WOUND FIRST AND SHOWED HER HOW TO PACK THE WOUND. RETURNED DEMO DONE CORRECTLY. GIVEN 4 DAYS WORTH OF WOUND SUPPLIES AND ADVISED TO REACH OUT TO [facility] FOR POSSIBLE WOUND CONSULT OR GO TO ER PER CM. WOUND CENTER CANT ACCEPT HER INSURANCE. PATIENT VERBALIZED UNDERSTANDING. HEALTH TEACHINGS DONE REGARDING THE NEED OF CONTINUING HOSPITALIZATION AND ATB THERAPY BUT PATIENT INSISTING OF LEAVING. EXPLAINED THAT AMA CAN LEAD OF HARM UP TO INCLUDING . REMOVED IV LINE AND COVERED WITH PRESSURE GAUZE. NO S/SX OF BLEEDING. ALL BELONGINGS WERE ACCOUNTED FOR. P
[2022-05-27] MEDS ORDERED: VANCOMYCIN 1 GM in IV D5W 250 ML IV SCH (19:00)
--- NOTE | 2022-05-27 19:12 | NUR ---
DR GOVEA, CHARGE NURSE LEIGHTON WERE MADE AWARE. ESCORTED THE PATIENT TO THE LOBBY AND LEFT THE BLDG AT 1345 PM.
== END 2022-05-27 13:45 | disposition home or self-care (01) | DRG 383 ==
LOC: ER 11:15 → MED 19:01
PROVIDERS: ADMIT Student in an Organized Health Care Education/Training Program; ATTEND Student in an Organized Health Care Education/Training Program
PROC: 0H98XZZ Drainage of Buttock Skin, External Approach (ICD-10-PCS; principal; 2022-05-25)
PROC: 05HB33Z Insertion of Infusion Device into Right Basilic Vein, Percutaneous Approach (ICD-10-PCS; 2022-05-26)
DX: L02.31 Cutaneous abscess of buttock (principal); D68.9 Coagulation defect, unspecified; K76.6 Portal hypertension; E44.0 Moderate protein-calorie malnutrition; K86.2 Cyst of pancreas; E87.1 Hypo-osmolality and hyponatremia; E88.09 Other disorders of plasma-protein metabolism, not elsewhere classified; K70.30 Alcoholic cirrhosis of liver without ascites; I10 Essential (primary) hypertension; Z91.048 Other nonmedicinal substance allergy status; Z79.899 Other long term (current) drug therapy; E87.6 Hypokalemia; D72.821 Monocytosis (symptomatic); R74.01 Elevation of levels of liver transaminase levels; F17.200 Nicotine dependence, unspecified, uncomplicated; L03.317 Cellulitis of buttock; T63.301S Toxic effect of unspecified spider venom, accidental (unintentional), sequela
CPT/HCPCS: 36410; 36415; 71260-TC; 80048-TC; 80053-TC; 80076-TC; 80202-TC; 82105; 82378; 83605-TC; 83735-TC; 84100-TC; 85025-TC; 85385-TC; 85610-TC; 85730-TC; 86301; 86706; 86803; 87040-TC; 87070-TC; 87081-TC; 87186-TC; 87340; A6253; A6403; A6407; C9803; G0378; J2270; J2543; J3370; J3480; J3490; J7030; J7050; J7060; Q9966; Q9967